=== PATIENT | male | born 1955 ===

== ENCOUNTER 2021-11-22 12:48 | Inpatient (IN) | payer MEDICARE ==
[~2021-11-22] VITALS: Wt 108.9 kg
[2021-11-22] MEDS ORDERED: ASCO500 PO (13:11)
[2021-11-22] MEDS ORDERED: Vitamin D1000 UNI1 PO (13:13)
[2021-11-22] MEDS ORDERED: COENZYME Q10200 MG PO (13:13)
[2021-11-22] MEDS ORDERED: B-12500 MC2 PO (13:13)
[2021-11-22] MEDS ORDERED: [UNRECOGNIZED DRUG - OTHER] PO (13:15)
[2021-11-22] MEDS ORDERED: Hair, Skin & N1 EACH PO (13:15)
[2021-11-22] MEDS ORDERED: PROBIOTIC1 EA13 PO (13:16)
[2021-11-22] MEDS ORDERED: OMEGA-3-FISH O1 EAC3 PO (13:16)
[2021-11-22] MEDS ORDERED: TURMERIC500 M2 PO (13:17)
[2021-11-22] MEDS ORDERED: ZINC220 (13:18)
[2021-11-22] MEDS ORDERED: CALCIUM PO (13:19)
[2021-11-22 15:11] LABS: BASOPHILS ABSOLUTE AUTO 0.02 K/mm3 (0.00-0.23); BASOPHILS PERCENT AUTO 2 % (0-2); EOSINOPHILS ABSOLUTE AUTO 0.01 K/mm3 (0.00-0.68); EOSINOPHILS PERCENT AUTO 1 % (0-6); Hematocrit 42.9 % (37.0-53.0); Hemoglobin 14.2 g/dL (13.5-17.5); Mean Corpuscular HGB Conc 33.1 g/dL (31.5-36.5); Mean Corpuscular Volume 91 fL (80-100); Platelet Count 198 K/mm3 (150-400); RDW Coefficient Variation 13.2 % (11.7-14.2); RDW Standard Deviation 43.2 fL (35.1-46.3); Red Blood Cell Count 4.74 M/mm3 (4.30-5.90); White Blood Cell Count 1.06 K/mm3 (4.00-11.30)
[2021-11-22 15:12] LABS: IMMATURE GRAN ABSOLUTE AUTO 0.04 K/mm3 (0.00-0.10); IMMATURE GRAN PERCENT AUTO 4 % (0-1); LYMPHOCYTES ABSOLUTE AUTO 0.59 K/mm3 (0.84-5.20); LYMPHOCYTES PERCENT AUTO 56 % (21-46); MONOCYTES ABSOLUTE AUTO 0.05 K/mm3 (0.16-1.47); MONOCYTES PERCENT AUTO 5 % (4-13); NEUTROPHILS ABSOLUTE AUTO 0.35 K/mm3 (1.96-9.15); NEUTROPHILS PERCENT AUTO 33 % (41-73)
[2021-11-22 15:37] LABS: Albumin, Blood 3.1 g/dL (3.4-5.0); Bilirubin, Total 1.1 mg/dL (0.1-1.0); Bun/Creatinine Ratio 16.5 (12.0-20.0); Calcium, Blood 8.1 mg/dL (8.5-10.1); Creatinine, Blood 0.97 mg/dL (0.60-1.20); Free Thyroxine 1.13 ng/dL (0.70-1.60); Potassium, Blood 4.1 mmol/L (3.5-5.5); Thyroid Stimulating Hormone 1.14 uIU/mL (0.360-4.800); Total Protein, Blood 6.1 g/dL (6.4-8.2)
--- NOTE | 2021-11-22 18:07 | NUR ---
UPDATE/SHIFT SUMMARY PT ARRIVED TO UNIT AT 1240 VIA GURNEY AND ON RA.PT ABLE TO TRANSFER SELF FROM GURNEY TO BED, TOLERATED WELL. PT HR A-FLUTTER 130-140'S UPON ARRIVAL, AMIODARONE GTT AND BOLUS ORDERED, RUNNING PER EMAR. OTHER VSS SINCE ARRIVAL TO UNIT. REROLLING MACHINE OPERATOR ON BOARD, SEEN PT TODAY. PT STARTS PO METOPROLOL 50MG BID PER REROLLING MACHINE OPERATOR ORDER. PLANS FOR POSSIBLE CARDIOVERSION TOMORROW. NO REPORT OF CHEST PAIN/PRESSURE SINCE ARRIVAL TO UNIT. NO REPORT OF SOB/DYSPNEA SINCE ARRIVAL TO UNIT.
--- NOTE | 2021-11-22 20:21 | NUR ---
PT IS ALERT AND ORIENTED. PT ATE 100% OF DINNER. HR IS AFLUTTER, FLUCTUATING BETWEEN 130-140'S. PT HAS CLEAR LUNG SOUNDS. AMIODIRONE DRIP RUNNING PER EMAR.
--- NOTE | 2021-11-23 01:26 | NUR ---
PT IS HAVING 2 SECOND PAUSES PER TELEMETRY. DELINQUENCY PREVENTION SOCIAL WORKER MIKE NOTIFIED.
--- NOTE | 2021-11-23 02:27 | NUR ---
ATTEMPTED TO CALL DR SMITH @ 0140, 0211. DR SMITH CALLED BACK AT 0219. REPORTED THAT PT HAVING MORE FREQUENT PAUSES, WITH LONGEST ONE AT 2.67 AND HR TRENDING IN THE 70'S TO 90'S. JOSE Adrian RN LISTENING BUTTERMAKER OVER SPEAKER PHONE. VERBAL ORDER RECIEVED FROM DR SMITH TO VIKA CASTAÑEDA.
[2021-11-23 03:38] LABS: BASOPHILS ABSOLUTE AUTO 0.04 K/mm3 (0.00-0.23); BASOPHILS PERCENT AUTO 1 % (0-2); EOSINOPHILS ABSOLUTE AUTO 0.17 K/mm3 (0.00-0.68); EOSINOPHILS PERCENT AUTO 4 % (0-6); Hematocrit 42.7 % (37.0-53.0); Hemoglobin 14.2 g/dL (13.5-17.5); IMMATURE GRAN ABSOLUTE AUTO 0.01 K/mm3 (0.00-0.10); IMMATURE GRAN PERCENT AUTO 0 % (0-1); LYMPHOCYTES ABSOLUTE AUTO 0.94 K/mm3 (0.84-5.20); LYMPHOCYTES PERCENT AUTO 20 % (21-46); MONOCYTES ABSOLUTE AUTO 0.57 K/mm3 (0.16-1.47); MONOCYTES PERCENT AUTO 12 % (4-13); Mean Corpuscular HGB 29.9 pg (26.0-34.0); Mean Corpuscular HGB Conc 33.3 g/dL (31.5-36.5); Mean Corpuscular Volume 90 fL (80-100); Mean Platelet Volume 10.5 fL (9.1-12.4); NEUTROPHILS ABSOLUTE AUTO 2.98 K/mm3 (1.96-9.15); NEUTROPHILS PERCENT AUTO 63 % (41-73); Platelet Count 218 K/mm3 (150-400); RDW Coefficient Variation 13.1 % (11.7-14.2); RDW Standard Deviation 43.4 fL (35.1-46.3); Red Blood Cell Count 4.75 M/mm3 (4.30-5.90); White Blood Cell Count 4.71 K/mm3 (4.00-11.30)
[2021-11-23 04:01] LABS: Bun/Creatinine Ratio 16.1 (12.0-20.0); Calcium, Blood 8.2 mg/dL (8.5-10.1); Creatinine, Blood 1.12 mg/dL (0.60-1.20); Potassium, Blood 4.1 mmol/L (3.5-5.5)
--- NOTE | 2021-11-23 06:04 | NUR ---
THIS RN AGREES WITH STUDENT NURSE DOCUMENTATION.
--- NOTE | 2021-11-23 06:19 | NUR ---
NO ACUTE CHANGES.
--- NOTE | 2021-11-23 17:27 | NUR ---
SHIFT SUMMARY PT'S HR CHANGED TO SINUS RHYTHM THIS AM AT ABOUT 0700, HE HAS SUSTAINED THIS RHYTHM AND AND HR IN 70'S THROUGHOUT THE DAY. ECHO COMPLETED SHOWING EF OF ABOUT 50-55%. AMIODARONE GTT WAS NOT CONTINUED TODAY, METOPROLOL WAS D/C AND SOTOLOL STARTED PER SYSTEM SPECIALIST ORDERS. NO OTHER ACUTE CHANGES, DISCHARGE LIKELY TOMORROW IF HR REMAINS STABLE.
--- NOTE | 2021-11-23 20:57 | NUR ---
Assumed care 1900. VSS on RA. Bedtime meds given. No complaints of pain. Tele: SR 70-80s. Will continue to monitor.
[2021-11-24 04:36] LABS: Anion Gap 4 mmol/L (6-16); Blood Urea Nitrogen 18 mg/dL (8-24); CO2, Blood 29 mmol/L (21-32); Calcium, Blood 8.1 mg/dL (8.5-10.1); Chloride, Blood 108 mmol/L (98-108); Creatinine, Blood 1.06 mg/dL (0.60-1.20); Glomerular Filtration Rate 76 (60-); Glucose, Blood 102 mg/dL (70-99); Magnesium, Blood 2.5 mg/dL (1.6-2.4); Phosphorus, Blood 3.7 mg/dL (2.5-4.9); Potassium, Blood 3.9 mmol/L (3.5-5.5); Sodium, Blood 141 mmol/L (136-145)
--- NOTE | 2021-11-24 05:19 | NUR ---
Surgical Consultant Note: VSS on RA. Tele: SR 70-80s. EKG done this AM, see chart. Pt is up independent in room. Good output overnight. No complaints of pain overnight.
--- NOTE | 2021-11-24 12:22 | NUR ---
UPDATE: NO ACUTE CHANGES TO PT CONDITION. HR 60s, SR ON MONITOR. SATS MAINTAINED >92% ON RA. PT DENIES CP, SOB. PT CONTINUES INDEPENDENT IN ROOM. DR CHOPRA AND DR GARCIA HAVE BOTH EVALUATED PT TODAY, PT CLEARED FOR DISCHARGE.
[2021-11-24] MEDS ORDERED: ELIQUIS5 M2 PO (12:31)
[2021-11-24] MEDS ORDERED: SOTO80 PO (12:32)
--- NOTE | 2021-11-24 14:03 | NUR ---
Patient is sitting up in bed and in his street clothes. Pt tells that he will d/c soon. Patient tells me about his medical issues, the exceptional care he has received from DR. Tarango and from the PCU staff. Pt then talks about his spouse and his dog and his anticipation of seeing them both. I encourage self-care and provide therapeutic listening. Pt voices his appreciation for the visit .
--- NOTE | 2021-11-24 14:37 | NUR ---
DISCHARGE: PT'S SPOUSE ARRIVES. PT PROVIDED WITH DISCHARGE PAPERWORK AND INSTRUCTIONS. ALL QUESTIONS HAVE BEEN ANSWERED. IV ACCESS DC'd WNL. PT ESCORTED FROM UNIT WITHOUT INCIDENT.
== END 2021-11-24 14:44 | disposition home or self-care (01) | DRG 310 ==
LOC: PCU 12:48
PROVIDERS: Student in an Organized Health Care Education/Training Program; ADMIT Internal Medicine
DX: I48.19 Other persistent atrial fibrillation (principal); I48.92 Unspecified atrial flutter; I49.3 Ventricular premature depolarization; I34.0 Nonrheumatic mitral (valve) insufficiency; R60.0 Localized edema; R79.89 Other specified abnormal findings of blood chemistry; E55.9 Vitamin D deficiency, unspecified; Z85.46 Personal history of malignant neoplasm of prostate; Z90.79 Acquired absence of other genital organ(s); Z98.890 Other specified postprocedural states; Z79.899 Other long term (current) drug therapy
CPT/HCPCS: 36415; 80053; 80069; 83735; 84439; 84443; 84484; 85025; 93005; 93010; 93306; A9270; J0282; J7060